=== PATIENT | male | born 1965 | race African-American/Black ===

== ENCOUNTER 2018-10-01 15:11 | Emergency (ER) | payer MEDICAID ==
[~2018-10-01] VITALS: Ht 185.4 cm; Wt 61.2 kg
[2018-10-01 15:29] VITALS: BP 134/89
[2018-10-01] MEDS ORDERED: ONDANSETRON ODT 4 MG TAB PO ONE (16:45)
[2018-10-01 16:53] LABS: Urine Bacteria NONE SEEN /hpf (None Seen); Urine Blood Negative /uL (Negative); Urine Mucus FEW (None Seen); Urine WBC 12 /hpf (0 - 3)
[2018-10-01 17:30] LABS: Basophils # (auto) 0 uL; Basophils % (auto) 0.7 % (0.0-2.0); Eosinophils # (auto) 0.1 uL; Eosinophils % (auto) 2.7 % (0.0-7.0); Hematocrit 40.3 % (41.0-53.0); Hemoglobin 13.7 g/dL (13.5-17.5); Lymphocytes # (auto) 1.2 uL; Lymphocytes % (auto) 34.6 % (10.0-50.0); Mean Corpuscular Hemoglobin 28.4 pg (28.0-32.0); Mean Corpuscular Volume 83.5 fL (80.0-100.0); Monocytes # (auto) 0.3 uL; Monocytes % (auto) 9.1 % (0.0-12.0); Neutrophils # (auto) 1.8 uL; Neutrophils % (auto) 52.9 % (37.0-80.0); Nucleated Red Blood Cells % 0.2 %; Platelet Count (auto) 266 10^3/uL (140-450); Red Blood Cells 4.83 10^6/uL (4.5-5.90); Red Cell Distribution Width 13.1 % (11.8-14.3); White Blood Cell 3.5 10^3/uL (4.4-10.8)
[2018-10-01] MEDS ORDERED: CIPROFLOXACIN HCL 500 MG TAB PO ONE (17:30)
[2018-10-01 17:32] LABS: Albumin 3.9 g/dL (3.4-5.0); Calcium 8.8 mg/dL (8.5-10.1); Potassium 4.5 mmol/L (3.5-5.1)
[2018-10-01 17:37] LABS: BUN/Creatinine Ratio 9.2; Bilirubin, Total 0.5 mg/dL (0.2-1.0); Total Protein 7.5 g/dL (6.4-8.2)
== END 2018-10-01 18:13 | disposition home or self-care (01) ==
LOC: ER 15:14
DX: K29.70 Gastritis, unspecified, without bleeding (principal); N39.0 Urinary tract infection, site not specified; I10 Essential (primary) hypertension; F17.210 Nicotine dependence, cigarettes, uncomplicated
CPT/HCPCS: 36415; 80053; 81001; 85025